=== PATIENT | female | born 1970 | race Caucasian/White ===

== ENCOUNTER 2018-12-30 12:06 | Day surgery (SDC) | payer OTHER ==
[2018-12-30] MEDS ORDERED: DIPHENHYDRAMINE 50 MG INJ (14:10)
[2018-12-30] MEDS ORDERED: FENTAnyl 50 MCG/ML VIAL ×2 (14:45)
[2018-12-30] MEDS ORDERED: MIDAZOLAM 1 MG/ML 2 ML INJ ×3 (14:45)
== END 2018-12-30 15:16 | disposition home or self-care (01) ==
LOC: GIL 12:06
DX: K29.50 Unspecified chronic gastritis without bleeding (principal); K44.9 Diaphragmatic hernia without obstruction or gangrene
CPT/HCPCS: 43239; 88305; 88312